=== PATIENT | male | born 1985 | race Caucasian/White ===

== ENCOUNTER 2019-06-05 07:02 | Outpatient (CLI) | payer MEDICAID, SELFPAY ==
[2019-06-05 07:53] LABS: Hemoglobin A1C 5.3 % (4.5-6.2)
[2019-06-05 09:56] LABS: Calculated LDL 69 mg/dL; Cholesterol 148 mg/dL (50-200); HDL Cholesterol 59 mg/dL (40-60); Triglyceride 102 mg/dL (30-150)
== END 2019-06-05 07:22 ==
PROVIDERS: PCP Family Medicine; Visit Provider Family Medicine
DX: Z00.00 Encounter for general adult medical examination without abnormal findings (principal); Z13.220 Encounter for screening for lipoid disorders; Z13.1 Encounter for screening for diabetes mellitus
CPT/HCPCS: 36415; 80061; 83721; 83036